=== PATIENT | female | born 1980 | race Two or more races ===

== ENCOUNTER 2024-05-25 21:49 | Emergency (ER) | payer MEDICAID, SELFPAY ==
[2024-05-25 22:16] VITALS: BP 115/73; PULSE 90; RESP 18; TEMP 36.9; O2SAT 99; BMI 40.2
--- NOTE | 2024-05-25 22:25 | PD.EDADULT ---
ED General RME/HPI General Chief complaint: General Adult/Misc Complain Stated complaint: Near syncope Source: patient Arrival date/time: 05/25/24 21:49 43-year-old female with no known medical history presents to the emergency room with a chief complaint of a near syncopal episode that occurred today at work. Mode of arrival: ambulatory Limitations: no limitations Related Data Previous Rx's ?Medication ?Instructions ?Recorded ferrous sulfate 325 mg (65 mg 325 mg PO BID #60 tabs 03/06/23 iron) tablet,delayed release Allergies Allergy/AdvReac Type Severity Reaction Status Date / Time No Known Allergies Allergy Verified 04/12/23 21:21 ED Exam General Limitations: Present no limitations Course Orders Category Date Time Status CBC Stat Lab 05/25/24 22:21 Ordered CMP [Comprehensive Metabolic Panel] Stat Lab 05/25/24 22:21 Ordered PT [Prothrombin Time with INR] Stat Lab 05/25/24 22:21 Ordered PTT [Partial Thromboplastin Time] Stat Lab 05/25/24 22:21 Ordered Type and Screen Stat Lab 05/25/24 22:21 Ordered Vital Signs Vital signs: Vital Signs Temperature 98.5 F 05/25/24 22:16 Pulse Rate 90 05/25/24 22:16 Respiratory Rate 18 05/25/24 22:16 Blood Pressure 115/73 05/25/24 22:16 Pulse Oximetry (%) 99 05/25/24 22:16 Oxygen Delivery Method Room Air 05/25/24 22:16 Discharge Plan Prescriptions/Referrals Prescriptions/Med Rec: No Action ferrous sulfate 325 mg (65 mg iron) tablet,delayed release (DR/EC) 325 mg PO BID Qty: 60 0RF Patient/Caregiver Discharge Instructions Print Language: Turkmen
[2024-05-25 23:02] LABS: Basophils # (Auto) 0.1 Thou/mm3 (0.0-0.2); Basophils % (Auto) 1 % (0-2.5); Eosinophils % (Auto) 0 % (0-10); Hematocrit 24.5 % (36.0-46.0); Immature Granulocytes % (Auto) 0 % (0-0); Immature Granulocytes Auto 0.02 Thou/mm3 (0.00-0.00); Lymphocytes # (Auto) 2.2 Thou/mm3 (1.0-4.8); Lymphocytes % (Auto) 23 % (10-50); Mean Corpuscular HGB Conc 26.5 g/dl (31.0-37.0); Mean Corpuscular Hemoglobin 15.2 pg (25.0-35.0); Mean Corpuscular Volume 57 fL (80-100); Monocytes # (Auto) 0.4 Thou/mm3 (0.0-0.8); Monocytes % (Auto) 4 % (0-12); Neutrophils # (Auto) 6.8 Thou/mm3 (1.8-7.7); Neutrophils % (Auto) 72 % (37-80); Nucleated Red Blood Cell % 0 /100 WBC (0); Platelet Count 492 Thou/mm3 (140-440); RDW Standard Deviation 43.8 fL (36.4-46.3); Red Blood Count 4.29 Miln/mm3 (4.00-5.20); White Blood Count 9.5 Thou/mm3 (3.6-11.0)
[2024-05-25 23:22] LABS: Alanine Aminotransferase 49 U/L (10-49); Albumin/Globulin Ratio 1.5 (1.2-2.2); Alkaline Phosphatase 139 U/L (46-116); Anion Gap 8 (7-16); Aspartate Amino Transferase 88 U/L (0-34); BUN/Creatinine Ratio 24 Ratio (12-20); Bilirubin,Total 1.1 mg/dL (0.3-1.2); Blood Urea Nitrogen 17 mg/dL (9-23); Calcium 9.5 mg/dL (8.3-10.6); Calcium (Corrected) 9.5 mg/dL (8.5-10.1); Carbon Dioxide 23.6 mMol/L (20.0-31.0); Chloride 103 mMol/L (98-107); Creatinine (Component) 0.7 mg/dL (0.6-1.3); Estimated Creatinine Clearance 114.5 mL/min (>60); Globulin 3.3 gm/dL (2.3-3.5); Glucose 92 mg/dL (74-106); Osmolality,Calculated 271 (275-295); Potassium 4.2 mMol/L (3.4-5.1); Sodium 135 mMol/L (136-145); Total Protein 8.3 gm/dL (5.7-8.2); eGFR > 60 See Note
[2024-05-25 23:37] LABS: Hemoglobin 6.5 g/dL (12.0-16.0)
--- NOTE | 2024-05-25 23:54 | PD.EDRME ---
Rapid Medical Screening Exam RME Arrival date/time: 05/25/24 21:49 43-year-old female with no known medical history presents to the emergency room with a chief complaint of a near syncopal episode that occurred today at work. I have greeted and performed a focused initial assessment of this patient. A comprehensive ED assessment and evaluation of the patient, analysis of all test results, and completion of the medical decision making process will be conducted by additional ED providers. Chief Complaint: General Adult/Misc Complain Time Seen by Provider: 05/25/24 22:25 Vital signs: Vital Signs Temperature 98.5 F 05/25/24 22:16 Pulse Rate 90 05/25/24 22:16 Respiratory Rate 18 05/25/24 22:16 Blood Pressure 115/73 05/25/24 22:16 Pulse Oximetry (%) 99 05/25/24 22:16 Oxygen Delivery Method Room Air 05/25/24 22:16 Vital signs reviewed by provider: Yes
[2024-05-26] VITALS (12 sets, daily range): BP systolic 99–136; BP diastolic 64–92; PULSE 69–83; RESP 16–20; TEMP 36.7–36.9; O2SAT 98–100
--- NOTE | 2024-05-26 01:06 | PC.NURSE ---
Pt to room 8 from lobby; assumed care at this time.
[2024-05-26 01:54] LABS: Partial Thromboplastin Time 21.2 Seconds (22.0-36.0); Prothrombin Time 10.9 Seconds (9.0-12.2)
--- NOTE | 2024-05-26 04:47 | PD.EDADULT ---
ED General RME/HPI General Chief complaint: General Adult/Misc Complain Stated complaint: Near syncope Time Seen by Provider: 05/25/24 22:25 Arrival date/time: 05/25/24 21:49 Limitations: no limitations RME / HPI RME / HPI narrative: 05/25/24 21:49 43-year-old female with no known medical history presents to the emergency room with a chief complaint of a near syncopal episode that occurred today at work. I have greeted and performed a focused initial assessment of this patient. A comprehensive ED assessment and evaluation of the patient, analysis of all test results, and completion of the medical decision making process will be conducted by additional ED providers. -------- Dr. Abdalla's Main ED Evaluation: 43yo female presents to the ED for a chief complaint of generalized weakness. Patient states she has had vaginal bleeding due to her menses for the last 6 days. She states she was previously told by her PCP in [place] that she had problems with my uterus and was told it may need to be removed, and was referred to an CERTIFIED NURSING ASSISTANT. She states never followed up after her initial appointment (after being diagnosed with fibroids) due to being scared . She states her periods are like this every month. Denies any N/V, fever, chills or any other associated symptoms. No known allergies. Patient states her symptoms have improved since arriving to the ED. Patient changed her pad 4x yesterday and anticipates her period flow will be light today. Related Data Previous Rx's ?Medication ?Instructions ?Recorded ferrous sulfate 325 mg (65 mg 325 mg PO BID #60 tabs 03/06/23 iron) tablet,delayed release Allergies Allergy/AdvReac Type Severity Reaction Status Date / Time No Known Allergies Allergy Verified 04/12/23 21:21 Review of Systems Review of Systems Systems Reviewed: All systems reviewed, normal except as documented Past Medical History Past Medical History CARDIAC: Negative Cardiac Disorders or Congestive Heart Failure RESPIRATORY: Positive Asthma; Negative Chronic Obstructive Pulmonary Disease (COPD) GENITOURINARY: Negative Renal Disease ENDOCRINE: Negative Diabetes Mellitus Type 1 or Diabetes Mellitus Type 2 HEMATOLOGIC: Positive Blood Disorders and Anemia; Negative Sickle Cell Disease Social History SMOKING STATUS: Never smoker ED Exam General Limitations: Present no limitations General appearance: Present alert, in no apparent distress and other (talking in full sentences; not orthostatic) Head Head exam: Present atraumatic Eye Eye exam: Present normal appearance, PERRL and EOMI ENT ENT exam: Present normal exam, normal oropharynx and mucous membranes moist Neck Neck exam: Present normal inspection, full ROM and trachea midline Chest Chest inspection: Present normal inspection and symmetric chest wall rise Respiratory Respiratory exam: Present normal lung sounds bilaterally Cardiovascular Cardiovascular exam: Present regular rate, normal rhythm and normal heart sounds Abdominal Exam Abdominal exam: Present soft, normal bowel sounds and other (large); Absent tenderness Extremities Exam Extremities exam: Present normal inspection and full ROM Back Exam Back exam: Present normal inspection and full ROM; Absent CVA tenderness (R) or CVA tenderness (L) Neurological Exam Neurological exam: Present alert, oriented X3 and CN II-XII intact Psychiatric Psychiatric exam: Present normal affect and normal mood Skin Skin exam: Present warm, dry, intact and pallor (mild) Course Quality Measures none Orders Category Date Time Status CBC Stat Lab 05/25/24 22:25 Completed CMP [Comprehensive Metabolic Panel] Stat Lab 05/25/24 22:25 Completed PT [Prothrombin Time with INR] Stat Lab 05/25/24 22:25 Completed PTT [Partial Thromboplastin Time] Stat Lab 05/25/24 22:25 Completed Type and Screen Stat Lab 05/25/24 22:25 Completed prbc [Red Blood Cells] Stat Lab 05/25/24 22:25 Completed Vital Signs Vital signs: Vital Signs Temperature 98.5 F 05/25/24 22:16 Pulse Rate 90 05/25/24 22:16 Respiratory Rate 18 05/25/24 22:16 Blood Pressure 115/73 05/25/24 22:16 Pulse Oximetry (%) 99 05/25/24 22:16 Oxygen Delivery Method Room Air 05/25/24 22:16 Pulse ox is 99% on room air, which is normal according to my interpretation. [facility] Patient data External records reviewed:: [facility] previous records (Per chart review, patient was seen here on 03/06/23 for anemia.) Clinical information provided by:: patient Social determinants that could affect healthcare access:: none Patient has the following chronic illnesses:: anemia How is presenting disease/condition affected by chronic disease/condition?: caused by Evaluation data The following diagnostics were reviewed and interpreted by me:: lab results Lab and/or radiology exams considered but not ordered:: none Interpretation Summary: HnH is low at 6.5/24.5, PT and INR are normal, PTT is 21.2, according to my interpretation. Medications Medications considered but not ordered:: none Medication administrations:: 2U PRBCs Consultations Consultation(s) initiated? (list below): No Diagnosis Differential Diagnosis ED Complaint MDM: abnormal uterine bleeding, anemia, dehydration, electrolyte abnormality Most likely diagnosis given after review of the tests above:: Other DDx: fibroids Final Dx: see below Admission Indicated Admission indicated?: not indicated Explain why admission is indicated or not indicated:: Admission criteria not met. Admission Request Was there a request for admission?: No Disposition Plan Disposition Plan: Discharge Discharge Attestation Discharge Attestation: The patient and all family members were given an opportunity to ask questions and understood the discharge instructions. Discharge instructions specifically effects, indications for sooner follow up or return to the emergency department, and the expected course of current diagnosis. Patient condition: Stable Medical Decision Making Differential Diagnosis Differential Diagnosis: abnormal uterine bleeding, anemia, dehydration, electrolyte abnormality Lab Data 05/25/24 22:25 05/25/24 22:25 Labs: Lab Results 05/25/24 Range/Units 22:25 WBC 9.5 (3.6-11.0) Thou/mm3 RBC 4.29 (4.00-5.20) Miln/mm3 Hgb 6.5 L* (12.0-16.0) g/dL Hct 24.5 L (36.0-46.0) % MCV 57 L (80-100) fL MCH 15.2 L (25.0-35.0) pg MCHC 26.5 L (31.0-37.0) g/dl RDW Std Deviation 43.8 (36.4-46.3) fL Plt Count 492 H (140-440) Thou/mm3 Neut % (Auto) 72 (37-80) % Lymph % (Auto) 23 (10-50) % Dillon % (Auto) 4 (0-12) % Eos % (Auto) 0 (0-10) % Baso % (Auto) 1 (0-2.5) % Neut # (Auto) 6.8 (1.8-7.7) Thou/mm3 Lymph # (Auto) 2.2 (1.0-4.8) Thou/mm3 Dillon # (Auto) 0.4 (0.0-0.8) Thou/mm3 Eos # (Auto) 0.0 (0.0-0.5) Thou/mm3 Baso # (Auto) 0.1 (0.0-0.2) Thou/mm3 Immature Gran # (Auto) 0.02 H (0.00-0.00) Thou/mm3 Absolute Nucleated RBC 0.00 (0.00-0.00) Thou/mm3 Immature Gran % 0 (0-0) % Nucleated RBC % 0 (0) /100 WBC PT 10.9 (9.0-12.2) Seconds INR 1.0 (0.9-1.3) APTT 21.2 L (22.0-36.0) Seconds Sodium 135 L (136-145) mMol/L Potassium 4.2 (3.4-5.1) mMol/L Chloride 103 (98-107) mMol/L Carbon Dioxide 23.6 (20.0-31.0) mMol/L Anion Gap 8 (7-16) BUN 17 (9-23) mg/dL Creatinine 0.7 (0.6-1.3) mg/dL Estim Creat Clear Calc 114.5 (>60) mL/min eGFR > 60 (60 - ) See Note BUN/Creatinine Ratio 24 H (12-20) Ratio Glucose 92 (74-106) mg/dL Calculated Osmolality 271 L (275-295) Calcium 9.5 (8.3-10.6) mg/dL Corrected Calcium 9.5 (8.5-10.1) mg/dL Total Bilirubin 1.1 (0.3-1.2) mg/dL AST 88 H (0-34) U/L ALT 49 (10-49) U/L Alkaline Phosphatase 139 H (46-116) U/L Total Protein 8.3 H (5.7-8.2) gm/dL Albumin 5.0 (3.5-5.0) gm/dL Globulin 3.3 (2.3-3.5) gm/dL Albumin/Globulin Ratio 1.5 (1.2-2.2) Blood Type O Positive Antibody Screen NEGATIVE Crossmatch See Detail Blood Bank Wristband ID Yes Discharge Plan Plan Patient Disposition: HOME (Self Care) Patient condition on transfer: Stable Prescriptions/Referrals Prescriptions/Med Rec: No Action ferrous sulfate 325 mg (65 mg iron) tablet,delayed release (DR/EC) 325 mg PO BID Qty: 60 0RF Referrals: Monica Ayon FNP [Primary Care Provider] - In 1 week Problem List Clinical Impression: Abnormal uterine bleeding Patient/Caregiver Discharge Instructions Education Materials: ED Dysfunctional Uterine Bleeding Additional Instructions: Per history you state you likely have fibroids on your last ultrasound and have an CERTIFIED NURSING ASSISTANT consult. Please call to get a follow-up with your primary care in the next 48 hours to see if you need a re-consult back to CERTIFIED NURSING ASSISTANT. Continue your iron medication as per your doctor. Return to the emergency department sooner than your appointment if you are having dizziness, you feel like you are going to pass out, you are weak and cannot ambulate, or any other concerns. Abnormal uterine bleeding Print Language: Hungarian Stand Alone Forms: [facility] Award Info., Patient Portal Info Letter
--- NOTE | 2024-05-26 04:47 | PC.NURSE ---
Dr. Abdalla at the bedside.
== END 2024-05-26 06:04 | disposition home or self-care (01) ==
PROVIDERS: Nurse Practitioner Family; Emergency Provider Emergency Medicine; PCP Nurse Practitioner Family
DX: N93.9 Abnormal uterine and vaginal bleeding, unspecified (principal)
CPT/HCPCS: 36415; 36430; 80053; 85025; 85610; 85730; 86850; 86900; 86901; 86923; 99285; P9016

== ENCOUNTER 2024-09-21 21:45 | Emergency (ER) | payer MEDICAID, SELFPAY ==
[2024-09-21 21:47] VITALS: BMI 43.9
--- NOTE | 2024-09-21 21:50 | EKG_ITS ---
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
[2024-09-21 22:29] VITALS: BP 118/70; PULSE 98; RESP 19; TEMP 37.8; O2SAT 95
[2024-09-22] MEDS: NAPROXEN 250 MG TABLET 500 MG PO (03:08)
[2024-09-22 03:42] VITALS: RESP 18
--- NOTE | 2024-09-22 03:54 | EDNOTE_ITS ---
Upper Respiratory Inf. RME/HPI General Chief Complaint: Chest Pain Stated Complaint: CHEST PAIN, COUGH, MACKEY TODAY Time Seen by Provider: 09/22/24 02:43 Arrival date/time: 09/21/24 21:45 44F with history of asthma presents to ED with 3 days of cough, MACKEY, and some CP when coughing. Patient was worried because she had a large tonsillar abscess before and was afraid it was that again. Limitations: no limitations Related Data Previous Rx's ?Medication ?Instructions ?Recorded ferrous sulfate 325 mg (65 mg 325 mg PO BID #60 tabs 1 05/06/22 iron) tablet,delayed release Allergies Allergy/AdvReac Type Severity Reaction Status Date / Time No Known Allergies Allergy Verified 09/21/24 21:47 Review of Systems Review of Systems Systems Reviewed: All systems reviewed, normal except as documented Constitutional Constitutional: Reports system reviewed and no additional complaints, except as documented, Reports as per HPI, Denies fever(s) and Reports headache(s) ENT Ears, Nose, Mouth, and Throat: Denies disequilibrium and Reports headache(s) Cardiovascular Cardiovascular: Reports system reviewed and no additional complaints, except as documented, Reports as per HPI, Reports chest pain and Denies dyspnea Respiratory Respiratory: Reports system reviewed and no additional complaints, except as documented, Reports as per HPI, Reports cough and Denies dyspnea Gastrointestinal Gastrointestinal: Reports system reviewed and no additional complaints, except as documented, Denies abdominal pain, Denies nausea and Denies vomiting Neurologic Neurologic: Reports system reviewed and no additional complaints, except as documented, Denies confusion, Denies disequilibrium and Reports headache(s) Psychiatric Psychiatric: Denies confusion Past Medical History Past Medical History CARDIAC: Negative Cardiac Disorders or Congestive Heart Failure RESPIRATORY: Positive Asthma; Negative Chronic Obstructive Pulmonary Disease (COPD) GENITOURINARY: Negative Renal Disease ENDOCRINE: Negative Diabetes Mellitus Type 1 or Diabetes Mellitus Type 2 HEMATOLOGIC: Positive Blood Disorders and Anemia; Negative Sickle Cell Disease Social History SMOKING STATUS: Never smoker ED Exam General Limitations: Present no limitations General appearance: Present alert and in no apparent distress Head Head exam: Present atraumatic Eye Eye exam: Present normal appearance, PERRL and EOMI ENT ENT exam: Present normal exam, normal oropharynx and mucous membranes moist Neck Neck exam: Present normal inspection, full ROM and trachea midline Chest Chest inspection: Present normal inspection and symmetric chest wall rise Respiratory Respiratory exam: Present normal lung sounds bilaterally Cardiovascular Cardiovascular exam: Present regular rate, normal rhythm and normal heart sounds Abdominal Exam Abdominal exam: Present soft and normal bowel sounds Extremities Exam Extremities exam: Present normal inspection and full ROM Back Exam Back exam: Present normal inspection and full ROM Neurological Exam Neurological exam: Present alert, oriented X3 and CN II-XII intact Psychiatric Psychiatric exam: Present normal affect and normal mood Skin Skin exam: Present warm, dry, intact and normal color Course Quality Measures none Orders Category Date Time Status Bedside COVID-19 Antigen Test NOW Care 09/22/24 02:31 Completed Bedside Influenza A&B Antigen Test NOW Care 09/22/24 02:31 Completed EKG (ED ONLY) *Do not use* NOW Care 09/21/24 21:50 Completed EKG (ED Only) Stat Exams 09/21/24 21:50 Draft Naproxen [Naprosyn] Med 09/22/24 02:43 Discontinued 500 mg PO X1 ONE Vital Signs Vital signs: Vital Signs Temperature 100.1 F 09/21/24 22:29 Pulse Rate 98 09/21/24 22:29 Respiratory Rate 19 09/21/24 22:29 Blood Pressure 118/70 09/21/24 22:29 Pulse Oximetry (%) 95 09/21/24 22:29 O2 at 95% on RA and WNLs Upper Respiratory Infection MDM Narrative MDM Narrative:: 44F with history of asthma presents to ED with 3 days of cough, MACKEY, and some CP when coughing. Patient was worried because she had a large tonsillar abscess before and was afraid it was that again. Physical exam reveals nasal congestion, but clear oropharynx and lungs. Patient is mildly febrile, but does not appear toxic. EKG is NSR. Flu B+. Meds and counselor marriage and family given. Patient data External records reviewed:: [facility] previous records Clinical information provided by:: patient Social determinants that could affect healthcare access:: none Patient has the following chronic illnesses:: asthma How is presenting disease/condition affected by chronic disease/condition?: no chronic disease Evaluation data The following diagnostics were reviewed and interpreted by me:: lab results and EKG tracing(s) Lab and/or radiology exams considered but not ordered:: ordered Interpretation Summary: above Medications / Prescriptions Medications or Prescriptions considered but not ordered:: ordered Medication administrations:: Medication Administration History Discontinued Medications Naproxen (Naproxen 250 Mg Tablet) 500 mg PO X1 ONE Stop: 09/22/24 02:44 Last Admin: 09/22/24 03:08 Dose: 500 mg Documented By: CVL above Consultations Consultation(s) initiated? (list below): No Diagnosis Upper Respiratory Differential Diagnosis: upper respiratory infection, croup, otitis media, sinusitis, viral infection, bronchitis, influenza and pharyngitis Most likely diagnosis given after review of the tests above:: flu B Admission Indicated Admission indicated?: not indicated Admission Request Was there a request for admission?: No Disposition Plan Disposition Plan: Discharge Discharge Attestation Discharge Attestation: The patient and all family members were given an opportunity to ask questions and understood the discharge instructions. Discharge instructions specifically effects, indications for sooner follow up or return to the emergency department, and the expected course of current diagnosis. Patient condition: Stable Discharge Plan Plan Patient Disposition: HOME (Self Care) Discharge Disposition comment: Stable Prescriptions/Referrals Prescriptions/Med Rec: No Action ferrous sulfate 325 mg (65 mg iron) tablet,delayed release (DR/EC) 325 mg PO BID Qty: 60 0RF Referrals: Jazmin Gray FNP [Primary Care Provider] - In 1 week Problem List Clinical Impression: Influenza B Patient/Caregiver Discharge Instructions Education Materials: ED Influenza (Adult) Additional Instructions: Please follow-up with PCP within 24-48 hours and return immediately if symptoms worsen. Ibuprofen/Tylenol can be used simultaneously for greater fever/pain control. Benadryl is good for cough, congestion, and sleep. Print Language: Armenian Stand Alone Forms: Patient Portal Info Letter YAMILET/CHRISTEN Supervising Physician NATALIE Supervising Physician: Dr. Abdalla
== END 2024-09-22 03:43 | disposition home or self-care (01) ==
PROVIDERS: Emergency Provider Emergency Medicine; PCP Registered Nurse
DX: J10.1 Influenza due to other identified influenza virus with other respiratory manifestations (principal); J45.909 Unspecified asthma, uncomplicated; R51.9 Headache, unspecified; R07.9 Chest pain, unspecified
CPT/HCPCS: 87400; 87811; 93005; 99283; A9270